=== PATIENT | female | born 1980 | race Caucasian/White ===

== ENCOUNTER 2017-03-04 08:23 | Emergency (ER) | payer OTHER ==
[~2017-03-04 08:23] MED LIST: CETI10TA22 PO; ESOM20CA PO; FLUT16SP2 NS; FLUT1DIS5 IH; LEVO25TA2 PO; LOPE2TAB27 PO; MONT10TA6 PO; NIAC500T PO; SIMV10TA PO
[2017-03-04 08:48] VITALS: BP 134/89
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
== END 2017-03-04 09:20 | disposition home or self-care (01) ==
LOC: ER 08:23
DX: F07.81 Postconcussional syndrome (principal); J45.909 Unspecified asthma, uncomplicated; E03.9 Hypothyroidism, unspecified; Z88.0 Allergy status to penicillin; Z88.2 Allergy status to sulfonamides
CPT/HCPCS: 99281

== ENCOUNTER 2017-03-28 17:02 | Emergency (ER) | payer OTHER ==
[~2017-03-28 17:02] MED LIST changes: -LEVO25TA2 PO; +LEVO25TA55 PO
[2017-03-28] MEDS ORDERED: HYDR-971 PO (17:38)
--- NOTE | 2017-03-28 17:39 | PHYS DOC ---
Past History Past Medical History: Asthma, Hypothyroid Past Surgical History: Other Smoking: Non-smoker Alcohol Use: Rarely Drug Use: None Adult General Chief Complaint Chief Complaint: ANKLE PROBLEM HPI HPI Patient is a 37 year old female who presents with complaint of right ankle pain after suffering a fall on steps. Patient states that she was walking down steps outside when she felt like her right ankle "gave out on me." Patient states that this caused her to fall forward. Patient states that she felt like she rolled her ankle outward and also hit her right knee on the concrete at the bottom of the steps. This took place within an hour prior to arrival. Patient states that she was able to bear some weight on the affected extremity after the fall but was unable to bear full weight. Patient states that she got into her car and came to the emergency department for evaluation. Patient denied hitting her head or losing consciousness. Patient states however that she did feel slightly lightheaded but did not experience any chest pain or other symptoms immediately prior to the fall. Patient has history of diabetes is currently on metformin. Patient states that her blood sugars today have been running "low." Patient did eat lunch prior to her fall. The patient rates her pain currently as 9 out of 10. Patient has not taken any medications for her symptoms. Patient states that her pain worsens when she attempts to bear weight on the right foot. Review of Systems Review of Systems Constitutional: Denies fever or chills [] Eyes: Denies change in visual acuity, redness, or eye pain [] HENT: Denies nasal congestion or sore throat [] Respiratory: Denies cough or shortness of breath [] Cardiovascular: Denies chest pain or edema [] GI: Denies abdominal pain, nausea, vomiting, bloody stools or diarrhea [] : Denies dysuria or hematuria [] Musculoskeletal: Right ankle pain [] Integument: Denies rash or skin lesions [] Neurologic: Denies headache, focal weakness or sensory changes [] Allergies Allergies Allergies Coded Allergies Type Severity Reaction Last Updated Verified Penicillins Allergy Unknown 06/03/14 Yes Sulfa (Sulfonamide Antibiotics) Allergy Unknown 06/03/14 Yes Physical Exam Physical Exam Constitutional: Alert, afebrile, appears in mild discomfort. [] HENT: Normocephalic, atraumatic, bilateral external ears normal, oropharynx moist, no oral exudates, nose normal. [] Eyes: PERRLA, EOMI, conjunctiva normal, no discharge. [] Neck: Normal range of motion, no tenderness, supple, no stridor. [] Cardiovascular:Heart rate regular rhythm, no murmur [] Lungs & Thorax: Bilateral breath sounds clear to auscultation [] Abdomen: Bowel sounds normal, soft, no tenderness, no masses, no pulsatile masses. [] Skin: Warm, dry, no erythema, no rash. [] Back: No tenderness, no CVA tenderness. [] Extremities: Moderate to severe soft tissue swelling and ecchymosis over lateral aspect of right ankle, range of motion not tested secondary to pain, abrasion along medial aspect of right knee, no bony tenderness palpation in right knee, full range of motion present in right knee. [] Neurologic: Alert and oriented X 3, normal motor function, normal sensory function, no focal deficits noted. [] EKG EKG Not performed [] Radiology/Procedures Radiology/Procedures 3 view right ankle x-ray interpreted by me: Avulsion fracture of lateral malleolus, no intra-articular fracture, normal alignment [] Course & Med Decision Making Course & Med Decision Making Pertinent Labs and Imaging studies reviewed. (See chart for details) Patient has evidence of an avulsion fracture to the distal lateral malleolus. This is a self-limiting injury and well heal without intervention. The patient was given an Manuel wrap and an Aircast in the emergency department. Patient also given crutches to assist with ambulation with recommendation for weightbearing as tolerated to the affected extremity. Advised follow-up in 2 weeks with patient's primary physician if symptoms not improving. Advised return emergency department for any worsening symptoms. Patient voiced understanding and in agreement with treatment plan. Dragon Disclaimer Dragon Disclaimer This chart was dictated in whole or in part using Voice Recognition software in a busy, high-work load, and often noisy Emergency Department environment. It may contain unintended and wholly unrecognized errors or omissions. Departure Departure: Impression: Primary Impression: Right ankle sprain Additional Impression: Avulsion fracture of ankle Disposition: 01 HOME, SELF-CARE Condition: IMPROVED Referrals: CLAUDIO VALVERDE DO (PCP) Patient Instructions: Ankle Sprain, Avulsion Fracture Additional Instructions: You may bear weight on your right foot as tolerated. Be sure to follow-up with primary doctor within 2 weeks if symptoms are not improving. You may treat your right ankle with ice packs 3 times a day for the next 3-4 days until swelling has improved. Be sure to keep her right ankle elevated above your heart when you are at rest. Return to the emergency department for any worsening symptoms. Scripts Hydrocodone Bit/Acetaminophen (NORCO 5-325 TABLET) 1 Each Tablet 1 TAB PO Q4-6HRS Y for PAIN, #20 TAB Prov: BARNT DALTON MD 03/28/17 Problem Qualifiers Primary Impression: Right ankle sprain Encounter type: initial encounter Involved ligament of ankle: unspecified ligament Qualified Codes: S93.401A - Sprain of unspecified ligament of right ankle, initial encounter Additional Impression: Avulsion fracture of ankle Encounter type: initial encounter Fracture type: closed Laterality: right Qualified Codes: S82.891A - Other fracture of right lower leg, initial encounter for closed fracture BRANT DALTON MD March 28, 2017 17:39
[2017-03-28 17:55] VITALS: BP 131/78
--- NOTE | 2017-03-29 07:45 | RAD ---
Right ankle, 3 views, 03/28/2017: History: Injury There is a tiny cortical avulsion fracture at the tip of the lateral malleolus. No other fracture or dislocation is identified. There is considerable soft tissue swelling laterally. IMPRESSION: Tiny cortical fracture at the tip of the lateral malleolus.
== END 2017-03-28 17:55 | disposition home or self-care (01) ==
LOC: ER 17:02
DX: S82.61XA Displaced fracture of lateral malleolus of right fibula, initial encounter for closed fracture (principal); R42 Dizziness and giddiness; E03.9 Hypothyroidism, unspecified; J45.909 Unspecified asthma, uncomplicated; E11.9 Type 2 diabetes mellitus without complications; Z88.0 Allergy status to penicillin; Z88.2 Allergy status to sulfonamides; W10.8XXA Fall (on) (from) other stairs and steps, initial encounter; Y93.01 Activity, walking, marching and hiking; Y99.8 Other external cause status; Y92.89 Other specified places as the place of occurrence of the external cause
CPT/HCPCS: 73610; 82947; 99284; 99285

== ENCOUNTER 2020-06-15 14:49 | Emergency (ER) | payer OTHER ==
[~2020-06-15] VITALS: Ht 180.3 cm; Wt 104.2 kg
[~2020-06-15 14:49] MED LIST changes: -CETI10TA22 PO; +CETI10TA24 PO; +HYDR-3165 PO; -MONT10TA6 PO; +MONT10TA80 PO
--- NOTE | 2020-06-15 14:56 | PHYS DOC ---
Past History Past Medical History: Asthma, Diabetes, GERD, High Cholesterol, Hypothyroid Past Surgical History: Other Smoking: Non-smoker Alcohol Use: Occasionally Drug Use: None General Adult EDM: Chief Complaint: NOSEBLEED HPI: HPI: 40-year-old female who presents for evaluation of bilateral epistaxis that began about 10 minutes prior to arrival. Reports a prior sinus surgery in November. Has reportedly been undergoing nasal/sinus washouts, most recently 1 week ago[address] with Dr. Meryl Anne of ENT. No anticoagulant use, though uses daily baby aspirin for cardioprotection. Review of Systems: Review of Systems: Gen: No fever, chills. ENT: No nasal congestion, sore throat. Reports epistaxis. CV: No CP. Resp. No SOB, cough. GI: No abd pain, N/V. Neuro: No dizziness, weakness. Remainder of systems reviewed and negative unless otherwise specified. Heart Score: Risk Factors: Risk Factors: DM, Current or recent (<one month) smoker, HTN, HLP, family history of CAD, obesity. Risk Scores: Score 0 - 3: 2.5% MACE over next 6 weeks - Discharge Home Score 4 - 6: 20.3% MACE over next 6 weeks - Admit for Clinical Observation Score 7 - 10: 72.7% MACE over next 6 weeks - Early Invasive Strategies Allergies: Allergies: Allergies Coded Allergies Type Severity Reaction Last Updated Verified Penicillins Allergy Unknown 06/03/14 Yes Sulfa (Sulfonamide Antibiotics) Allergy Unknown 06/03/14 Yes Physical Exam: PE: Gen: NAD. Well nourished. Head: NC/AT. Eyes: No scleral icterus. No conjunctival injection. ENT: Blood noted in the bilateral nostrils without active hemorrhage noted. Posterior oropharynx clear without blood. Neck: Supple. CV: RRR. Peripheral pulses intact. Resp: CTAB. MSK: No peripheral cyanosis. Neuro: Awake and alert. Skin. Warm. Dry. Psych: Appropriate mood & affect. EKG: EKG: [] Radiology/Procedures: Radiology/Procedures: [] Course & Med Decision Making: Course & Med Decision Making Pertinent Labs and Imaging studies reviewed. (See chart for details) In summary, 40F p/w mild BL epistaxis, now solved with clamp/afrin. HDS. No clinical S/Sx significant anemia. Will DC home with outpatient FU with Dr. Anne. Remains hemostatic > 1 hour. Return precautions given. Dragon Disclaimer: Dragnaif Disclaimer: This electronic medical record was generated, in whole or in part, using a voice recognition dictation system. Departure Departure: Impression: Primary Impression: Epistaxis Disposition: 01 HOME/RESIDENCE PRIOR TO ADM Condition: STABLE Referrals: CLAUDIO VALVERDE DO (PCP) Patient Instructions: Nosebleed, [id number] Additional Instructions: Please follow up with your ENT Dr. Anne in the next 2-3 days. Justification of Admission: Justification of Admission: Justification of Admission Dx: N/A ROMEO GARNETT DO Jun 15, 2020 14:56
[2020-06-15] MEDS ORDERED: OXYMETAZOLINE 0.05% NASAL SPRAY 30ML BOTTLE. NS ONE (14:59)
[2020-06-15 17:00] VITALS: BP 123/79
== END 2020-06-15 17:06 | disposition home or self-care (01) ==
LOC: ER 14:49
DX: R04.0 Epistaxis (principal); J45.909 Unspecified asthma, uncomplicated; E11.9 Type 2 diabetes mellitus without complications; K21.9 Gastro-esophageal reflux disease without esophagitis; E78.00 Pure hypercholesterolemia, unspecified; E03.9 Hypothyroidism, unspecified; Z88.0 Allergy status to penicillin; Z88.2 Allergy status to sulfonamides
CPT/HCPCS: 99281; 99282

== ENCOUNTER → 2022-01-05 | Outpatient (CLI) | payer OTHER ==
[~2022-01-05] MED LIST changes: -CETI10TA24 PO; +CETI10TA74 PO
--- NOTE | 2022-01-05 09:19 | RAD ---
EXAM: Right ankle, 3 views; right foot, 3 views. HISTORY: Pain. Twisting injury. COMPARISON: 03/28/2017 FINDINGS: 3 views of the right ankle and foot are obtained. There is a chronic nonunited avulsion fra cture fragment inferior to the lateral malleolus. No acute fracture is seen. The ankle mortise is int act. There is no osteochondral lesion. There is ankle soft tissue edema. IMPRESSION: 1. No acute osseous finding. 2. Soft tissue edema. Electronically signed by: Emily Hernandez MD (01/05/2022 9:16 AM) [id number]
== END ==
LOC: RAD 08:16
PROVIDERS: ATTEND Nurse Practitioner Family
DX: S82.61XA Displaced fracture of lateral malleolus of right fibula, initial encounter for closed fracture (principal); M79.89 Other specified soft tissue disorders; X58.XXXA Exposure to other specified factors, initial encounter; Y93.89 Activity, other specified; Y92.89 Other specified places as the place of occurrence of the external cause; Y99.8 Other external cause status
CPT/HCPCS: 73610; 73630